=== PATIENT | female | born 1970 | race Hispanic/Latino ===

== ENCOUNTER → 2018-12-11 | Outpatient (CLI) | payer BC | END | disposition home or self-care (01) | LOC: OIH 13:37 | PROVIDERS: ATTEND Internal Medicine | DX: R05 Cough (principal); M47.815 Spondylosis without myelopathy or radiculopathy, thoracolumbar region; I70.0 Atherosclerosis of aorta | CPT/HCPCS: 71046 ==

== ENCOUNTER 2019-06-24 06:53 | Day surgery (SDC) | payer BC ==
[2019-06-23 17:53] LABS: BASOPHILS % (AUTO) 0.6 % (0.0-5.0); EOSINOPHILS % (AUTO) 0.4 % (0.0-8.0); HEMATOCRIT 36.3 % (36-48); LYMPHOCYTES % (AUTO) 27.9 % (21.0-51.0); MEAN CORPUSCULAR HEMOGLOBIN 31.1 pg (27.0-33.0); MEAN CORPUSCULAR HGB CONC 33.6 g/dL (32.0-36.0); MEAN CORPUSCULAR VOLUME 92.6 fL (79-99); MONOCYTES % (AUTO) 11.5 % (3.0-13.0); NEUTROPHILS % (AUTO) 59.4 % (40.0-77.0); PLATELET COUNT (AUTO) 298 K/uL (130-400); RED BLOOD CELL COUNT(AUTO) 3.92 MIL/uL (4.00-5.50); RED CELL DISTRIBUTION WIDTH 13.9 % (11.0-15.5); WHITE BLOOD COUNT (AUTO) 4.7 K/uL (4.8-10.8)
[2019-06-23 18:17] VITALS: BP 120/56
[2019-06-24] VITALS (17 sets, daily range): BP systolic 107–124; BP diastolic 47–74
[~2019-06-24] VITALS: Ht 152.4 cm; Wt 63.0 kg
[~2019-06-24 06:53] MED LIST: METH2.5T6 PO; SULF500T8 PO
[2019-06-24] MEDS ORDERED: DEXAMETHASONE SOD PHOSPHATE 10MG/ML 1ML VIAL ONE (07:47)
[2019-06-24] MEDS ORDERED: ONDANSETRON HCL 4 MG/2 ML VIAL ONE (07:47)
[2019-06-24] MEDS ORDERED: PROPOFOL 10 MG/ML 20ML VIAL IV ONE (07:47)
[2019-06-24] MEDS ORDERED: LIDOCAINE PF 2% 5ML ABBOJECT ONE (07:47)
[2019-06-24] MEDS ORDERED: MIDAZOLAM HCL 1 MG/ML 2ML VIAL ONE (07:47)
[2019-06-24] MEDS ORDERED: FENTANYL CITRATE PF 50 MCG/1 ML 2ML VIAL ONE (07:48)
[2019-06-24] MEDS ORDERED: ACETIC ACID 0.25% 1,000 ML IRRIG.SOLN ONE (08:30)
[2019-06-24] MEDS: LACTATED RINGERS 1000ML 1,000 ML IV SCH ×2 (08:31→14:17)
[2019-06-24] MEDS ORDERED: OMEP-298 PO (08:33)
[2019-06-24] MEDS ORDERED: EPHEDRINE SULFATE 50 MG/ML AMPULE ONE (08:34)
[2019-06-24] MEDS ORDERED: KETOROLAC TROMETHAMINE 30MG/ML ONE (08:51)
[2019-06-24] MEDS ORDERED: MEPERIDINE-PF 25 MG/ML SYG ONE (08:52)
--- NOTE | 2019-06-24 10:49 | NUR ---
PT LEFT VIA WHEELCHAIR IN PVT CAR, D/C INSTRUCTION GIVEN TO SPOUSE, NO COMPLICATION, PT. STABLE.
== END 2019-06-24 11:00 ==
LOC: DAH 06:53
DX: N87.9 Dysplasia of cervix uteri, unspecified (principal); N81.2 Incomplete uterovaginal prolapse; K21.9 Gastro-esophageal reflux disease without esophagitis; Z79.899 Other long term (current) drug therapy; Z90.49 Acquired absence of other specified parts of digestive tract; Z72.89 Other problems related to lifestyle; Z85.850 Personal history of malignant neoplasm of thyroid; Z82.49 Family history of ischemic heart disease and other diseases of the circulatory system; Z83.3 Family history of diabetes mellitus
CPT/HCPCS: 36415; 57520; 84703; 85025; A4215; A4221; A4222; A4223; A4351; A4663; A6260; C1769; J1100; J1885; J2001; J2175; J2250; J2405; J2704; J3010; J3490; J7120 ×3

== ENCOUNTER → 2020-07-20 | Outpatient (CLI) | payer BC ==
[~2020-07-20] MED LIST changes: +OMEP20CA12 PO
== END | disposition home or self-care (01) ==
LOC: OIH 14:34
PROVIDERS: ATTEND Internal Medicine
DX: Z11.1 Encounter for screening for respiratory tuberculosis (principal); M51.35 Other intervertebral disc degeneration, thoracolumbar region; Z90.49 Acquired absence of other specified parts of digestive tract
CPT/HCPCS: 71046